=== PATIENT | male | born 1965 | race Caucasian/White ===

== ENCOUNTER 2021-03-06 18:34 | Emergency (ER) | payer BC, SELFPAY ==
[2021-03-06] VITALS (22 sets, daily range): BP systolic 113–153; BP diastolic 80–107; PULSE 62–99; RESP 9–19; TEMP 36.5–36.6; O2SAT 96–100
--- NOTE | ~2021-03-06 | CT_ITS ---
EXAMINATION: CTA chest PE protocol DATE: 03/06/2021 21:18 INDICATION: Left chest pain. TECHNIQUE: Computed tomography angiography (CTA) of the chest was performed with 100 mL Omnipaque-350 intravenous contrast timed to evaluate the pulmonary arteries. Coronal maximum intensity projection 3D-reconstructions were created by the technologist. Automated exposure control and iterative reconst ruction technique were employed. The dose-length product was 549.07 mGy-cm. COMPARISON: Chest 2 views 03/06/2021 FINDINGS: There is mild scarring at the lung apices. There is mild scarring in the paraspinal lower l obes. Calcified bilateral lung nodules are consistent with old granulomatous disease. There are a few scattered 1-2 mm nodules in the lungs, likely benign. There is a 3 mm nodule in left upper lobe, lik nano benign. No pleural effusion. The heart size is normal. There are coronary artery calcifications. No pericardial effusion. There is no pulmonary embolus. There is mild thoracic spondylosis. IMPRESSION: 1. No pulmonary embolus. Reviewed, dictated and finalized at location A. IMPRESSION: 1. No pulmonary embolus.
--- NOTE | ~2021-03-06 | XR_ITS ---
EXAMINATION: XR chest 2V DATE: 03/06/2021 19:05 INDICATION: Left chest pain. TECHNIQUE: Frontal and lateral views of the chest were obtained. COMPARISON: None. FINDINGS: The chest demonstrates clear lungs without pneumonia, pleural effusion, or pneumothorax. Th e heart size is normal. There is mild chronic anterior wedging of 2 midthoracic vertebral bodies. IMPRESSION: 1. No acute cardiopulmonary disease. Reviewed, dictated and finalized at location A.
--- NOTE | 2021-03-06 18:36 | ECG_ITS ---
Measurements Intervals [place] Rate: 72 P: 56 TN: 141 QRS: 27 QRSD: 85 T: 62 QT: 389 QTc: 428 Interpretive Statements SINUS RHYTHM VENTRICULAR PREMATURE COMPLEX BORDERLINE ECG Electronically Signed On 03-06-2021 20:09:44 CDT by Dillon Hwang D.O.
[2021-03-06 19:00] LABS: Basophils Percent Auto 0.4 % (0.2-1.2); Eosinophils Absolute Auto 0.1 K/mm3 (0-0.3); Eosinophils Percent Auto 1.5 % (0-4.4); Hematocrit 38.6 % (42.0-52.0); Hemoglobin 12.9 g/dL (14.0-18.0); Immature Platelet Fraction Pct 1.8 % (0.9-11.2); Lymphocytes Absolute Auto 2.29 K/mm3 (0.9-3.2); Lymphocytes Percent Auto 42.3 % (18.3-44.2); Mean Corpuscular HGB Conc 33.4 g/dl (32-36); Mean Corpuscular Hemoglobin 28.7 pg (26-34); Mean Platelet Volume 9.3 fl (7.4-10.4); Monocytes Absolute Auto 0.5 K/mm3 (0.1-0.6); Monocytes Percent Auto 8.5 % (2.6-8.5); Neutrophils Absolute Auto 2.6 K/mm3 (1.3-6.7); Neutrophils Percent Auto 47.3 % (45.5-73.1); Platelet Count Result 117 k/mm3 (150-375); Red Blood Count 4.49 M/mm3 (4.6-6.20); White Blood Count 5.4 K/mm3 (4.5-10.0)
[2021-03-06 19:11] LABS: Anion Gap 7 mmol/L (8-16); Blood Urea Nitrogen 19 mg/dL (9-20); Calcium 9.8 mg/dL (8.4-10.2); Carbon Dioxide 33 mmol/L (22-30); Chloride 99 mmol/L (98-107); Estimated CRCL calculation 90 ml/min; Estimated Glomerular Filt Rate > 60; Glucose 112 mg/dL (65-110); Potassium 4.1 mmol/L (3.4-5.0); Sodium 139 mmol/L (137-145)
[2021-03-06 19:14] LABS: Prothrombin Time 13.4 Seconds (11.1-14.7)
[2021-03-06 19:15] LABS: Partial Thromboplastin Time 28.3 SECONDS (22.3-36.8)
[2021-03-06 19:22] LABS: Troponin I < 0.012 ng/mL (0.000-0.034)
--- NOTE | 2021-03-06 20:49 | PC.NURSE ---
pt moved to room 10 for private room. pt states concerns about having cancer and sharing a room w/ someone. report given to TOÑA Whitley
--- NOTE | 2021-03-06 20:53 | ED.GENADULT ---
HPI - General Adult General Chief complaint: Chest Pain Stated complaint: chest pain Time Seen by Provider: 03/06/21 20:01 Source: patient and RN notes reviewed History of Present Illness HPI narrative: Patient is a 55 y/o male complaining of sharp, poking left sided chest pain starting approximately 3 hours ago. The pain is located in left lateral chest with radiation to left shoulder. He rates his pain as 8/10. He has some SOB. Of note, he was undergoing leukophoresis earlier today for immunotherapy of his prostate cancer. He was told to come to ED for further evaluation. Related Data Home Medications Medication Instructions Recorded Confirmed leuprolide (3 month) 22.5 mg (3 22.5 mg IM [id number] 01/22/21 01/22/21 month) intramuscular syringe kit Allergies Allergy/AdvReac Type Severity Reaction Status Date / Time No Known Allergies Allergy Unknown Verified 03/02/21 12:11 Review of Systems Constitutional: Constitutional: Denies chills, Denies fever(s), Denies headache(s) and Denies weakness Eyes: Eyes: Denies blurry vision ENT: Denies headache(s) and Denies neck pain Cardiovascular: Cardiovascular: Reports chest pain and Reports dyspnea Respiratory: Respiratory: Denies cough and Reports dyspnea Gastrointestinal: Gastrointestinal: Denies abdominal pain, Denies diarrhea, Denies nausea and Denies vomiting Genitourinary: Genitourinary: Denies hematuria and Denies dysuria Musculoskeletal: Musculoskeletal: Denies back pain and Denies neck pain Neurologic: Denies headache(s) and Denies weakness PMFSH Past Medical History Medical History Abnormal weight gain Anxiety disorder, unspecified History of fracture of orbit Insomnia Prostate cancer Screening for lipid disorders Surgical History Surgical History History of laparoscopic appendectomy History of tonsillectomy and adenoidectomy Hx of decompression of ulnar nerve Family History Family History Other Breast cancer Diabetes mellitus Family history of lung cancer Malignant neoplasm of prostate Melanoma Social History Social History Smoking status: Never smoker Alcohol intake: current Exam Const: General: no acute distress and well developed Orientation/consciousness: oriented to person, oriented to place, oriented to time and patient oriented x3 HENMT: Head: normocephalic Ears: external ears normal General nose exam: Normal external nose present Eyes: General: appearance normal, both eyes and all related structures Conjunctivae: conjunctivae normal Neck: Neck: normal visual inspection and full ROM Chest: Chest palpation & inspection: normal inspection of the chest and no tenderness Resp: Effort & Inspection: normal respiratory effort Auscultation: clear to auscultation bilaterally Cardio: Rate: regular rate Rhythm: regular rhythm GI: GI Palp: No abdominal tenderness and Yes Soft to palpation Skin: General skin exam: normal color and turgor normal Neuro: General: oriented to person, oriented to place, oriented to time and patient oriented x3 Cognition (Neuro): normal cognition Extrem: General: normal to inspection, full ROM and no pedal edema Psych: Appearance: grossly normal Mental Status: mental status grossly normal Affect: normal affect Course Vital Signs Vital signs: Vital Signs Temperature 36.5 C 03/06/21 18:43 Pulse Rate 74 03/06/21 18:43 Respiratory Rate 18 03/06/21 18:43 Blood Pressure 145/107 H 03/06/21 18:43 Pulse Oximetry 98 03/06/21 18:43 Temperature 36.6 C 03/06/21 19:52 Pulse Rate 73 03/06/21 21:31 Respiratory Rate 19 03/06/21 21:31 Blood Pressure 129/81 03/06/21 21:31 Pulse Oximetry 98 03/06/21 21:31 Medical Decision Making Vital Signs Vital Signs
[2021-03-06] MEDS: ASPIRIN 81 MG CHEWABLE TABLET 324 MG PO (21:30)
[2021-03-06 22:32] LABS: Troponin I < 0.012 ng/mL (0.000-0.034)
[2021-03-07] VITALS (8 sets, daily range): BP systolic 114–128; BP diastolic 77–85; PULSE 58–76; RESP 14–17; O2SAT 98–100
== END 2021-03-07 01:10 | disposition home or self-care (01) ==
PROVIDERS: Emergency Provider Emergency Medicine; PCP Family Medicine
DX: R07.9 Chest pain, unspecified (principal); F41.9 Anxiety disorder, unspecified
CPT/HCPCS: 36415; 71046; 71275; 80048; 84484; 85025; 85055; 85610; 85730; 93005; 99284; A9270; Q9967

== ENCOUNTER 2022-09-18 06:52 | Emergency (ER) | payer BC, SELFPAY ==
[2022-09-18] VITALS (12 sets, daily range): BP systolic 117–135; BP diastolic 81–90; PULSE 60–88; RESP 12–18; TEMP 36.7–37.2; O2SAT 98–100
--- NOTE | ~2022-09-18 | XR_ITS ---
EXAMINATION: XR chest 2V DATE: 09/18/2022 07:58 INDICATION: Chills. TECHNIQUE: Frontal and lateral views of the chest were obtained. COMPARISON: Chest 2 views 03/06/2021, chest CT 03/06/2021 FINDINGS: The chest demonstrates clear lungs without pneumonia, pleural effusion, or pneumothorax. Th e heart size is normal. There are changes of vertebroplasty at 2 levels. IMPRESSION: 1. No acute cardiopulmonary disease. Reviewed, dictated and finalized at location A.
[2022-09-18 07:49] LABS: Basophils Percent Auto 0.7 % (0.2-1.2); Eosinophils Absolute Auto 0.1 K/mm3 (0-0.3); Eosinophils Percent Auto 1.2 % (0-4.4); Hematocrit 42.2 % (42.0-52.0); Hemoglobin 14.4 g/dL (14.0-18.0); Immature Granulocyte Absolute 0.01 K/mm3 (0.00-0.031); Immature Granulocyte Percent A 0.2 % (0-0.5); Lymphocytes Absolute Auto 1.81 K/mm3 (0.9-3.2); Lymphocytes Percent Auto 44.6 % (18.3-44.2); Mean Corpuscular HGB Conc 34.1 g/dl (32-36); Mean Corpuscular Hemoglobin 28.2 pg (26-34); Mean Corpuscular Volume 82.6 fl (80-100); Mean Platelet Volume 9.9 fl (7.4-10.4); Monocytes Absolute Auto 0.4 K/mm3 (0.1-0.6); Monocytes Percent Auto 10.8 % (2.6-8.5); Neutrophils Absolute Auto 1.7 K/mm3 (1.3-6.7); Neutrophils Percent Auto 42.5 % (45.5-73.1); Platelet Count Result 183 k/mm3 (150-375); Red Blood Count 5.11 M/mm3 (4.6-6.20); White Blood Count 4.1 K/mm3 (4.5-10.0)
[2022-09-18 07:58] LABS: Magnesium 2.2 mg/dL (1.6-2.3)
[2022-09-18 07:59] LABS: Alanine Aminotransferase 37 U/L (6-50); Albumin Level 4.5 g/dL (3.5-5.1); Alkaline Phosphatase 44 U/L (38-126); Anion Gap 7 mmol/L (8-16); Aspartate Amino Transferase 29 U/L (17-59); Bilirubin,Total 0.9 mg/dL (0.2-1.3); Blood Urea Nitrogen 12 mg/dL (9-20); Calcium 8.7 mg/dL (8.4-10.2); Carbon Dioxide 26 mmol/L (22-30); Chloride 102 mmol/L (98-107); Estimated Glomerular Filt Rate > 60; Glucose 108 mg/dL (65-110); Potassium 4.3 mmol/L (3.4-5.0); Sodium 135 mmol/L (137-145)
[2022-09-18 08:02] LABS: INR 1.2; Prothrombin Time 15.1 Seconds (11.1-14.7)
[2022-09-18 08:10] LABS: Appearance Urine Clear (Clear); Bacteria Urine None Seen /hpf; Bilirubin Urine Negative (Negative); Blood Urine Negative (Negative); Color Urine Yellow (Yellow); Glucose Urine UA Negative (Negative); Ketones Urine 1+ mg/dL (Negative); Leukocyte Esterase Ur Trace LEU/UL (Negative); Nitrate Urine Negative (Negative); Non Pathogenic Casts 0-2; Protein Urine Negative (Negative); RBC Urine 0-2 /hpf (0-2); Specific Grav Ur 1.011 (1.001-1.035); Squamous Epithelial Cell Urine None seen /hpf (Few); Urobilinogen Urine 0.2 mg/dL (<2.0); WBC Urine 0-5 /hpf
[2022-09-18 08:19] LABS: Add Urine Microscopic? YES
[2022-09-18 08:31] LABS: Influenza A QL RT-PCR Negative (Negative); Influenza B QL RT-PCR Negative (Negative); SARS-CoV-2 RNA PCR Negative (Negative)
--- NOTE | 2022-09-18 08:44 | PC.NURSE ---
PER DR REYES IT IS OK FOR THE PT TO TAKE HIS ELIQUIS DOSE FROM HOME.
--- NOTE | 2022-09-18 10:11 | ED.GENADULT ---
HPI - General Adult General Chief complaint: Unspecified Stated complaint: multiple complaints Time Seen by Provider: 09/18/22 07:04 History of Present Illness HPI narrative: Patient is a 57-year-old male who presents ER with shaking. Reports earlier this morning began shaking uncontrollably in his arms and legs. He is having cramping as well. He also had some tingling in his hands. Reports he was feeling cold. No fevers. No runny nose or sore throat or cough. No abdominal discomfort or GI complaints. No urinary complaints. No known sick contacts. Patient does have history of prostate cancer. Patient has been started on new antidepressants recently. He is supposed to start Wellbutrin today and has been taking BuSpar for the last week. Patient was recently decreased use of Xanax because it was making him sleepy. Patient had no loss of consciousness, no tongue biting, no loss of urine. Related Data Home Medications Medication Instructions Recorded Confirmed oxycodone 10 mg tablet,crush 10 mg PO Q12H 03/11/22 09/10/22 resistant,extended release 12 hr (OxyContin) abiraterone 250 mg tablet 750 mg PO DAILY 08/01/22 09/10/22 apixaban 5 mg tablet 5 mg PO BID 08/01/22 09/10/22 denosumab 60 mg/mL subcutaneous 60 mg subcut [id number] 08/01/22 09/10/22 syringe (Prolia) leuprolide (3 month) 11.25 mg (3 11.25 mg IM [id number] 08/01/22 09/10/22 month) intramuscular syringe kit (Lupron Depot) magnesium gluconate 27 mg 27 mg PO BID 08/01/22 09/10/22 magnesium (500 mg) tablet (Mag-G) ofloxacin 0.3 % eye drops 1 drp EACH EYE QID 08/01/22 09/10/22 prednisolone acetate 1 % eye 2 drp EACH EYE Q12H 08/01/22 09/10/22 drops,suspension prednisone 5 mg tablet 5 mg PO BID 08/01/22 09/10/22 Allergies Allergy/AdvReac Type Severity Reaction Status Date / Time adhesive tape Allergy Intermediate Rash Verified 09/18/22 07:46 Review of Systems Review of Systems: All systems reviewed & are unremarkable except as noted in HPI and below Constitutional: Constitutional: Reports chills, Denies fatigue and Denies fever(s) Cardiovascular: Cardiovascular: Denies chest pain, Denies irregular heart rhythm and Denies radiating jaw, neck or arm pain Respiratory: Respiratory: Denies cough, Denies dyspnea and Denies wheezing Gastrointestinal: Gastrointestinal: Denies abdominal pain, Denies diarrhea, Denies nausea and Denies vomiting Musculoskeletal: Musculoskeletal: Reports muscle cramps and Reports stiffness Neurologic: Denies lack of coordination, Denies focal weakness, Reports tingling and Reports tremor(s) [facility] Past Medical History Medical History Abnormal weight gain Anxiety disorder, unspecified BMI 21.0-21.9, adult BMI 22.0-22.9, adult BMI 23.0-23.9, adult BMI 24.0-24.9, adult BMI 25.0-25.9,adult BMI 28.0-28.9,adult BMI 30.0-30.9,adult Dvt femoral (deep venous thrombosis) Fatigue History of fracture of orbit Insomnia Osteoporosis Prostate cancer Pulmonary embolism Screening for lipid disorders Surgical History Surgical History H/O cataract removal with insertion of prosthetic lens History of laparoscopic appendectomy History of tonsillectomy and adenoidectomy Hx of decompression of ulnar nerve Family History Family History Father Kidney atrophy Mother COPD (chronic obstructive pulmonary disease) Sibling No problems noted. Other Breast cancer Diabetes mellitus Family history of lung cancer Malignant neoplasm of prostate Melanoma Social History Social History Smoking status: Never smoker Second hand tobacco smoke exposure: Yes Alcohol intake: current Drinks per week: 2 Substance use: never Substance use type: does not use Lack of Food: [place]
== END 2022-09-18 10:30 | disposition home or self-care (01) ==
PROVIDERS: Emergency Provider Emergency Medicine; PCP Family Medicine
DX: R25.8 Other abnormal involuntary movements (principal); R25.2 Cramp and spasm; Z20.822 Contact with and (suspected) exposure to COVID-19; M81.0 Age-related osteoporosis without current pathological fracture; Z85.46 Personal history of malignant neoplasm of prostate; Z86.718 Personal history of other venous thrombosis and embolism; Z86.711 Personal history of pulmonary embolism; Z79.01 Long term (current) use of anticoagulants; Z98.49 Cataract extraction status, unspecified eye; Z96.1 Presence of intraocular lens
CPT/HCPCS: 36415; 71046; 80053; 81001; 83735; 85025; 85610; 85730; 87636; 99283